=== PATIENT | male | born 1955 | race Caucasian/White ===

== ENCOUNTER 2017-03-19 06:51 | Day surgery (SDC) | payer OTHER ==
[~2017-03-19] VITALS: Ht 177.8 cm; Wt 86.0 kg
[~2017-03-19 06:51] MED LIST: DOCU100C PO; GLUC-212 PO; LACTATED RINGERS 1,000 ML IV SCH; MULT-35 PO; SIMV40TA2 PO; SODIUM CHLORIDE FLUSH 3 ML SYR IV PRN
[2017-03-19 07:02] VITALS: BP 118/83
[2017-03-19] MEDS ORDERED: ALFENTANIL 500 MCG/ML (ALFENTA) 5 ML AMP IV ONE (07:27)
[2017-03-19] MEDS ORDERED: PROPOFOL 20 ML IV ONE ×2 (07:27→07:28)
[2017-03-19] MEDS ORDERED: MIDAZOLAM 2 MG/2 ML (VERSED) VIAL ONE (07:27)
[2017-03-19] MEDS ORDERED: FLUMAZENIL (ROMAZICON) 0.1 MG/ML 5 ML VIAL ONE (09:00)
[2017-03-19 09:06] VITALS: BP 107/59
[2017-03-19 09:47] VITALS: BP 123/70
--- NOTE | 2017-03-19 10:26 | OPERATIVE REPORT ---
DATE OF OPERATION: 03/19/2017 PRE-OPERATIVE DIAGNOSIS: Colon screening POST-OPERATIVE DIAGNOSIS: Normal colon OPERATIVE PROCEDURE: Total colonoscopy SURGEON: Marcelo Murphy MD ANESTHESIA: IV conscious sedation, Monitored Anesthesia Services POSITION: Left lateral decubitus FINDINGS: 1. Redundant colon. 2. Normal mucosa. 3. Good prep. OPERATIVE NOTE: Following satisfactory induction of analgesia a digital rectal exam was performed. This revealed normal prostate with no rectal mass. Sphincter tone was normal. The colonoscope was introduced per rectum and advanced under CO2 insufflation and direct vision to the cecum. Initially tortuosity and redundancy of the sigmoid prevented advancement of the adult colonoscope. This scope was therefore removed and the pediatric scope inserted. With this the sigmoid could be successfully traversed and the scope advanced to the cecum. The cecum was identified by convergence of the teniae, ileocecal valve, and palpation/transillumination of the right lower quadrant. A vaccine customer representative photograph was obtained. The above areas were again carefully inspected as the scope was slowly withdrawn. Retroflexed view of the rectum was normal. Excess insufflated CO2 was evacuated and the scope removed. The patient tolerated the procedure well and transferred to recovery in stable condition. RECOMMENDATIONS: In the absence of symptoms, I recommend repeat screening colonoscopy in 10 years.
== END 2017-03-19 09:50 | disposition home or self-care (01) ==
LOC: ASC 06:51
PROVIDERS: ATTEND Surgery
DX: Z12.11 Encounter for screening for malignant neoplasm of colon (principal); Q43.8 Other specified congenital malformations of intestine; M19.90 Unspecified osteoarthritis, unspecified site; E78.5 Hyperlipidemia, unspecified
CPT/HCPCS: 45378; J2250; J3490; J7120